=== PATIENT | male | born 1995 | race Caucasian/White ===

== ENCOUNTER 2017-09-12 11:26 | Emergency (ER) | payer MEDICAID, OTHER ==
--- NOTE | 2017-09-12 12:16 | ER Document Report ---
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 No fever. Associated Symptoms: None Exacerbated by: Denies Relieved by: Denies Similar symptoms previously: No Recently seen / treated by doctor: No - ROS ROS below otherwise negative: Yes Systems Reviewed and Negative: Yes All other systems reviewed and negative Past Medical History - General Information source: Patient - Social History Smoking Status: Unknown if Ever Smoked Frequency of alcohol use: None Drug Abuse: None Lives with: Family Family History: Reviewed & Not Pertinent - Medical History Medical History: Negative Surgical Hx: Negative - Immunizations Immunizations up to date: Yes Hx Diphtheria, Pertussis, Tetanus Vaccination: Yes Vertical Provider Document - CONSTITUTIONAL Agree With Documented VS: Yes Exam Limitations: No Limitations General Appearance: No Apparent Distress - INFECTION CONTROL TRAVEL OUTSIDE OF THE [place] IN LAST 30 DAYS: No - HEENT HEENT: Normocephalic, PERRLA Notes: bilateral palpebral and bulbar conjunctival injection, no FB, no flourescein uptake, preauricular nodes bilateral. EOM's intact. Vision OK. - NECK Neck: Supple - RESPIRATORY O2 Sat by Pulse Oximetry: 100 - NEURO Level of Consciousness: Awake, Alert - DERM Integumentary: Warm, Dry Course - Vital Signs Vital signs: Temp Pulse Resp BP Pulse Ox 98.4 F 67 16 117/50 L 100 09/12/17 11:47 09/12/17 11:47 09/12/17 11:47 09/12/17 11:47 09/12/17 11:47 Discharge - Discharge Clinical Impression: Bilateral conjunctivitis Qualifiers: Conjunctivitis type: acute Acute conjunctivitis type: unspecified Qualified Code(s): H10.33 - Unspecified acute conjunctivitis, bilateral Condition: Good Disposition: HOME, SELF-CARE Instructions: Conjunctivitis ([facility]), Eyedrop Use ([facility]), Warm Packs ([facility]) Additional Instructions: wash hands well eye drops for 1 week see the eye doctor if symptoms worsen to er if any increased eye or face swelling with fever Prescriptions: Besifloxacin HCl [Besivance Drops] 1 drop OU TID #1 bottle Forms: Return to Work Referrals: LINDSEY CASTANEDA MD [ACTIVE STAFF] - Follow up as needed MATTHEW CARDOZA MD [ACTIVE STAFF] - Follow up as needed
[2017-09-12] MEDS ORDERED: BESIFLOXACIN HCL 0.6% OPH SUSP 5 ML BOTTLE OU ONE (13:46)
[2017-09-12 13:55] VITALS: BP 114/63
== END 2017-09-12 13:54 | disposition home or self-care (01) ==
LOC: ER 11:26
DX: H10.33 Unspecified acute conjunctivitis, bilateral (principal); H57.13 Ocular pain, bilateral
CPT/HCPCS: 99283